=== PATIENT | male | born 1990 | race Caucasian/White ===

== ENCOUNTER 2021-07-01 20:51 | Observation (INO) | payer OTHER ==
[2021-07-01] MEDS ORDERED: SODIUM CHLORIDE 0.9% 1,000 ML IV STA ×2 (21:26→22:12)
[2021-07-01 21:45] LABS: Basophils # (A) 0.1 k/uL (0-0.2); Basophils % (A) 1 %; Eosinophils # (A) 0.4 k/uL (0-0.7); Eosinophils % (A) 2 %; HCT 46.6 % (39.0-53.0); HGB 15.1 gm/dL (13.0-17.5); Lymphocytes # (A) 2.7 k/uL (1.0-4.8); Lymphocytes % (A) 17 %; MCHC 32.3 g/dL (31.0-37.0); MCV 96.1 fL (80.0-100.0); Mean Platelet Volume 6.8; Monocytes # (A) 0.7 k/uL (0-1.0); Monocytes % (A) 4 %; Neutrophils # (A) 11.4 k/uL (1.3-7.7); Neutrophils % (A) 74 %; Platelet Count 353 k/uL (150-450); RBC 4.85 m/uL (4.30-5.90); WBC 15.5 k/uL (3.8-10.6)
[2021-07-01 21:53] LABS: Appearance,Urine Clear (Clear); Bilirubin,Urine Negative (Negative); Blood,Urine Negative (Negative); Color,Urine Light Yellow; Glucose,Urine (UA) Negative (Negative); Ketones,Urine Negative (Negative); Leukocyte Esterase,Urine Negative (Negative); Nitrite,Urine Negative (Negative); PH, Urine 7.5 (5.0-8.0); Protein,Urine Negative (Negative); Specific Gravity,Urine 1.015 (1.001-1.035); Urobilinogen,Urine <2.0 mg/dL (<2.0)
[2021-07-01 22:03] LABS: ALT 62 U/L (4-49); AST 49 U/L (17-59); African American GFR (CKD) >90 (>60 ml/min/1.73 sqM); Albumin 4.5 g/dL (3.5-5.0); Alkaline Phosphatase 78 U/L (38-126); Anion Gap 7 mmol/L; Blood Urea Nitrogen 23 mg/dL (9-20); Calcium 9.9 mg/dL (8.4-10.2); Carbon Dioxide 31 mmol/L (22-30); Chloride 101 mmol/L (98-107); Glucose 86 mg/dL (74-99); Lipase 79 U/L (23-300); Non-African American GFR(CKD) >90 (>60 ml/min/1.73 sqM); Potassium 5.3 mmol/L (3.5-5.1); Sodium 139 mmol/L (137-145); Total Bilirubin 0.4 mg/dL (0.2-1.3); Total Protein 7.6 g/dL (6.3-8.2)
--- NOTE | 2021-07-01 22:43 | CT ---
EXAMINATION TYPE: CT abdomen pelvis w con DATE OF EXAM: 07/01/2021 COMPARISON: None HISTORY: bdominal pain. Pt states hx stomach/colon removal due to sepsis CT DLP: 809 mGycm Automated exposure control for dose reduction was used. CONTRAST: Performed with IV Contrast, patient injected with 100 mL of Isovue 300. Images obtained from the diaphragm to the floor the pelvis with IV contrast. Lung bases are clear. There is no pleural effusion. Heart size is normal. There is no pericardial eff usion. Liver and spleen are intact. Liver is enlarged and measures 21 cm. There is no pancreatic mass . There is some deformity of the stomach. Gallbladder is contracted. The bile duct are not dilated. T here is no evidence of pancreatic mass. There is no adrenal mass. Kidneys show satisfactory contrast opacification. There is no hydronephrosi s. There is 2 mm calculi lower pole left kidney. The ureters are not dilated. There is no retroperito ileana adenopathy. There is small amount of fluid in the pelvis with low attenuation. Bladder distends smoothly. There is no inguinal hernia. There is no mesenteric edema. There is no ascites or free air. There is no bowel obstruction. Appendi x appears to be posterior and appears normal. Delayed images show normal renal excretion. Lumbar vertebrae have normal alignment. There is no compression fracture. The bony pelvis is intact. Hip joints appear normal. IMPRESSION: There is small amount of low-density fluid in the pelvis. Tiny amount of fluid adjacent to the right lobe of the liver. Mild hepatomegaly.
--- NOTE | 2021-07-01 23:37 | ED ---
Abdominal Pain HPI - General Source: patient, EMS Mode of arrival: EMS <Ubaldo Carrillo - Last Filed: 07/01/21 23:37> - General Source: patient, EMS, RN notes reviewed Mode of arrival: EMS <Nasreen Powers - Last Filed: 07/02/21 05:11> - General Chief Complaint: Abdominal Pain Stated Complaint: Abd Pain Time Seen by Provider: 07/01/21 21:17 - History of Present Illness Initial Comments: 30-year-old male presents to the emergency department via EMS for evaluation of right sided abdominal pain, onset today. Patient describes his pain is persistent discomfort. Denies any aggravating or alleviating factors. It is not accompanied by nausea, vomiting, or diarrhea. No change in appetite. Patient states he is concerned because he had a "ruptured ulcer" in March resulting in emergency surgery which occurred at [facility]. Patient does endorse a of history of IV drug abuse. Did not take anything to treat pain prior to arrival. (Nasreen Powers) - Related Data Allergies Allergy/AdvReac Type Severity Reaction Status Date / Time No Known Allergies Allergy Verified 07/01/21 21:05 Review of Systems ROS Other: All systems not noted in ROS Statement are negative. <GerardoUbaldo - Last Filed: 07/01/21 23:37> ROS Other: All systems not noted in ROS Statement are negative. <Linda Powersa - Last Filed: 07/02/21 05:11> ROS Statement: Those systems with pertinent positive or pertinent negative responses have been documented in the HPI. Past Medical History Past Medical History: Hypertension History of Any Multi-Drug Resistant Organisms: None Reported Additional Past Surgical History / Comment(s): abd surgey for ruptured ulcer (mar 2021) Past Psychological History: Anxiety, Depression Smoking Status: Current every day smoker Past Alcohol Use History: None Reported Past Drug Use History: Methamphetamine <GerardoUbaldo - Last Filed: 07/01/21 23:37> General Exam Limitations: no limitations (Well-developed, well-nourished male in no acute distress. Initial temperature 98.5, pulse 97, respirations 18, blood pressure 129/82, pulse ox 99% on room air.) General appearance: alert, in no apparent distress ENT exam: Present: normal exam, normal oropharynx, mucous membranes moist Respiratory exam: Present: normal lung sounds bilaterally. Absent: respiratory distress, wheezes, rales, rhonchi, stridor Cardiovascular Exam: Present: regular rate, normal rhythm, normal heart sounds. Absent: systolic murmur, diastolic murmur, rubs, gallop, clicks GI/Abdominal exam: Present: soft, tenderness (Nonlocalized tenderness upon palpation of the right side of abdomen), normal bowel sounds. Absent: distended, guarding, rebound, rigid Extremities exam: Present: normal inspection, full ROM, normal capillary refill. Absent: tenderness, pedal edema, joint swelling, calf tenderness Back exam: Present: normal inspection. Absent: CVA tenderness (R), CVA tenderness (L) Neurological exam: Present: alert, oriented X3, CN II-XII intact Psychiatric exam: Present: normal affect, normal mood <Nasreen Powers - Last Filed: 07/02/21 05:11> Course Vital Signs 07/01/21 07/01/21 07/02/21 20:52 23:07 02:17 Temperature 98.5 F Pulse Rate 97 89 84 Respiratory 18 18 16 Rate Blood Pressure 129/82 119/79 127/81 O2 Sat by Pulse 99 100 96 Oximetry 07/02/21 04:50 Temperature Pulse Rate 82 Respiratory 16 Rate Blood Pressure 128/78 O2 Sat by Pulse 98 Oximetry Procedures - Supply Protocol (Time Out) Nurse: Rickey Espinoza <Ubaldo Carrillo - Last Filed: 07/01/21 23:37> Medical Decision Making - Lab Data Result diagrams: 07/01/21 21:29 07/01/21 21:29 <Ubaldo Carrillo - Last Filed: 07/01/21 23:37> - Lab Data Result diagrams: 07/01/21 21:29 07/01/21 21:29 - Radiology Data Radiology results: report reviewed <Nasreen Powers - Last Filed: 07/02/21 05:11> - Medical Decision Making I saw this patient in conjunction with the nurse practitioner. I performed independent history and physical exam. Agree with case management. (Ubaldo Carrillo) This is a pleasant 30-year-old male who presents to the emergency department for evaluation of right-sided abdominal pain. Patient has a history of abdominal surgery last March related to a ruptured ulcer. Upon exam, patient appears moderately uncomfortable, but is able to rest calmly and explain his situation. He has not experienced any nausea, vomiting, or diarrhea at this time. Abdomen is soft, though tender along the right side. He was given IV fluids, Toradol, and Zofran with improvement. Laboratory studies were obtained showing leukocytosis and lactic acidosis. Additional fluids ordered for elevated lactic acid, though there is no overt concern for sepsis as patient is afebrile and not tachycardic. Blood cultures were collected and a dose of IV antibiotic was given. CT of the abdomen and pelvis does show small amount of fluid in the pelvis along with tiny amount of fluid adjacent to the right lobe of the liver. Given patient's history, physical exam findings, and workup, he will be admitted to the hospital for further evaluation and treatment. I did speak with Dr. Lyman who agrees to accept this patient. This patient's care was provided in collaboration with my attending Dr. Carrillo. ([facility]) - Lab Data Lab Results 07/01/21 07/01/21 07/01/21 Range/Units 21:29 21:29 21:29 WBC 15.5 H (3.8-10.6) k/uL RBC 4.85 (4.30-5.90) m/uL Hgb 15.1 (13.0-17.5) gm/dL Hct 46.6 (39.0-53.0) % MCV 96.1 (80.0-100.0) fL MCH 31.0 (25.0-35.0) pg MCHC 32.3 (31.0-37.0) g/dL RDW 14.0 (11.5-15.5) % Plt Count 353 (150-450) k/uL MPV 6.8 Neutrophils % 74 % Lymphocytes % 17 % Monocytes % 4 % Eosinophils % 2 % Basophils % 1 % Neutrophils # 11.4 H (1.3-7.7) k/uL Lymphocytes # 2.7 (1.0-4.8) k/uL Monocytes # 0.7 (0-1.0) k/uL Eosinophils # 0.4 (0-0.7) k/uL Basophils # 0.1 (0-0.2) k/uL Sodium 139 (137-145) mmol/L Potassium 5.3 H (3.5-5.1) mmol/L Chloride 101 (98-107) mmol/L Carbon Dioxide 31 H (22-30) mmol/L Anion Gap 7 mmol/L BUN 23 H (9-20) mg/dL Creatinine 0.86 (0.66-1.25) mg/dL Est GFR (CKD-EPI)AfAm >90 (>60 ml/min/1.73 sqM) Est GFR (CKD-EPI)NonAf >90 (>60 ml/min/1.73 sqM) Glucose 86 (74-99) mg/dL Lactic Ac Sepsis Rflx Plasma Lactic Acid Joe 2.5 H* (0.7-2.0) mmol/L Calcium 9.9 (8.4-10.2) mg/dL Total Bilirubin 0.4 (0.2-1.3) mg/dL AST 49 (17-59) U/L ALT 62 H (4-49) U/L Alkaline Phosphatase 78 (38-126) U/L Total Protein 7.6 (6.3-8.2) g/dL Albumin 4.5 (3.5-5.0) g/dL Lipase 79 (23-300) U/L Urine Color Urine Appearance (Clear) Urine pH (5.0-8.0) Ur Specific Pepin (1.001-1.035) Urine Protein (Negative) Urine Glucose (UA) (Negative) Urine Ketones (Negative) Urine Blood (Negative) Urine Nitrite (Negative) Urine Bilirubin (Negative) Urine Urobilinogen (<2.0) mg/dL Ur Leukocyte Esterase (Negative) 07/01/21 07/01/21 Range/Units 21:38 22:05 WBC (3.8-10.6) k/uL RBC (4.30-5.90) m/uL Hgb (13.0-17.5) gm/dL Hct (39.0-53.0) % MCV (80.0-100.0) fL MCH (25.0-35.0) pg MCHC (31.0-37.0) g/dL RDW (11.5-15.5) % Plt Count (150-450) k/uL MPV Neutrophils % % Lymphocytes % % Monocytes % % Eosinophils % % Basophils % % Neutrophils # (1.3-7.7) k/uL Lymphocytes # (1.0-4.8) k/uL Monocytes # (0-1.0) k/uL Eosinophils # (0-0.7) k/uL Basophils # (0-0.2) k/uL Sodium (137-145) mmol/L Potassium (3.5-5.1) mmol/L Chloride (98-107) mmol/L Carbon Dioxide (22-30) mmol/L Anion Gap mmol/L BUN (9-20) mg/dL Creatinine (0.66-1.25) mg/dL Est GFR (CKD-EPI)AfAm (>60 ml/min/1.73 sqM) Est GFR (CKD-EPI)NonAf (>60 ml/min/1.73 sqM) Glucose (74-99) mg/dL Lactic Ac Sepsis Rflx Y Plasma Lactic Acid Joe (0.7-2.0) mmol/L Calcium (8.4-10.2) mg/dL Total Bilirubin (0.2-1.3) mg/dL AST (17-59) U/L ALT (4-49) U/L Alkaline Phosphatase (38-126) U/L Total Protein (6.3-8.2) g/dL Albumin (3.5-5.0) g/dL Lipase (23-300) U/L Urine Color Light Yellow Urine Appearance Clear (Clear) Urine pH 7.5 (5.0-8.0) Ur Specific Pepin 1.015 (1.001-1.035) Urine Protein Negative (Negative) Urine Glucose (UA) Negative (Negative) Urine Ketones Negative (Negative) Urine Blood Negative (Negative) Urine Nitrite Negative (Negative) Urine Bilirubin Negative (Negative) Urine Urobilinogen <2.0 (<2.0) mg/dL Ur Leukocyte Esterase Negative (Negative) - Radiology Data CT of the abdomen and pelvis with contrast was obtained. Report was reviewed in its entirety. Impression per Dr. Rodriguez as there is small amount of blood density fluid in the pelvis. Tiny amount of fluid adjacent to the right lobe of the liver. mild hepatomegaly. (Nasreen Powers) Disposition <Ubaldo Carrillo - Last Filed: 07/01/21 23:37> Decision Date: 07/02/21 Decision Time: 01:15 <Nasreen Powers - Last Filed: 07/02/21 05:11> Clinical Impression: Abdominal pain, Leukocytosis, Lactic acidosis Disposition: ADMITTED IP TO THIS HOSP Condition: Serious
[2021-07-02] MEDS ORDERED: ONDANSETRON 4 MG/2 ML VIAL IVP PRN (01:10)
[2021-07-02] MEDS ORDERED: KETOROLAC 15 MG/ML 1 ML VIAL IVP PRN (01:10)
[2021-07-02] MEDS ORDERED: NALOXONE 0.4 MG/ML 1 ML VIAL IV PRN (01:10)
[2021-07-02] MEDS: SODIUM CHLORIDE 0.9% 1,000 ML IV SCH ×2 (02:16→08:04)
[2021-07-02 08:02] VITALS: BP 135/71; PULSE 75; RESP 18; TEMP 98.1
--- NOTE | 2021-07-02 12:43 | P.HPIM ---
History of Present Illness H&P Date: 07/02/21 This is a pleasant 30-year-old male who was recently at [facility] for past history of IV drug abuse and started having some intense right upper and lower quadrant abdominal pain that was not associated with nausea or vomiting and patient denied diarrhea. Patient states that the pain was intense and patient was not eating or drinking and feels he may have become dehydrated. On admission patient was found to be slightly acidotic with a plasma lactic acid of 2.5 and was started on IV hydration which has improved to 1.5 today. Patient also with a mild white blood count of 15.5 which is most likely reactive. Patient is afebrile patient denies any nausea or vomiting. Patient had CT abdomen and pelvis in the ER which showed a small amount of low- density fluid in the pelvis with the tiny amount of fluid adjacent to the right lobe of the liver and mild hepatomegaly with no other abnormal findings noted in the abdomen. Patient is tolerating diet and no further reports of abdominal pain noted on today's exam. Patient has a past medical history of hypertension although does not take any medications for this, patient admits to smoking tobacco daily approximately one pack per day although has recently cut down to half a pack per day, patient also admits to anxiety and depression. Review Of Systems: Constitutional: No fever, no chills, no night sweats. No weight change. No weakness, fatigue or lethargy. No daytime sleepiness. EENT: No headache. No blurred vision or double vision, no loss of vision. No loss of Hearing, no ringing in the ears, no dizziness. No nasal drainage or congestion. No epistaxis. No sore throat. Lungs: No shortness of breath, cough, no sputum production. No wheezing. Cardiovascular: No chest pain, no lower extremity edema. No palpitations. No paroxysmal nocturnal dyspnea. No orthopnea. No lightheadedness or dizziness. No syncopal episodes. Abdominal: Right upper and lower quadrant abdominal pain. No nausea, vomiting. No diarrhea. No constipation. No bloody or tarry stools.. No loss of appetite. Genitourinary: No dysuria, increased frequency, urgency. No urinary retention. Musculoskeletal: No myalgias. No muscle weakness, no gait dysfunction, no frequent falls. No back pain. No neck pain. Integumentary: No wounds, no lesions. No rash or pruritus. No unusual bruising. No change in hair or nails. Neurologic: No aphasia. No facial droop. No change in mentation. No head injury. No headache. No paralysis. No paresthesia. Psychiatric: No depression. No anxiety. No mood swings. Endocrine: No abnormal blood sugars. No weight change. No excessive sweating or thirst. No cold intolerance. PHYSICAL EXAMINATION: GENERAL: The patient is alert and oriented x4, Well developed, well nourished. HEENT: Pupils are round and equally reacting to light. EOMI. does have scleral icterus. No conjunctival pallor. Normocephalic, atraumatic. No pharyngeal erythema. No thyromegaly. CARDIOVASCULAR: S1 and S2 present, normal sinus rhythm PULMONARY: Breath sounds clear to auscultation with no wheezing or rhonchi noted. ABDOMEN: soft. Nontender on exam. non-distended, normoactive bowel sounds. No palpable organomegaly. No guarding or rigidity noted, no CVA tenderness noted on exam MUSCULOSKELETAL: No joint swelling or deformity. EXTREMITIES: No cyanosis, clubbing, or pedal edema. NEUROLOGICAL: Gross neurological examination did not reveal any focal deficits. SKIN: No rashes. Assessment: Abdominal pain, right upper quadrant and lower quadrant of unknown etiology most likely secondary to dehydration Lactic acidosis, present on admission most likely secondary to dehydration and poor oral intake Leukocytosis, most likely reactive GI prophylaxis DVT prophylaxis History of IV drug abuse and methamphetamine use, currently at [place] Full code Plan: Recommend to continue with hydration and repeat labs recommended although patient refused. Patient's lactic acidosis has improved and normalized after IV hydration. Patient states he is feeling much improved and denies any abdominal pain, nausea or vomiting. Patient had a normal bowel movement today and is passing gas. Patient tolerating diet. Patient was at [facility] for rehab and almost finished and will be going to [facility] and [place] after [facility] which is are been arranged. Patient reports to having one day left at [facility] and would like to get back there. Patient will be discharged to [facility] and is calling the facility to arrange for picking him up. Patient reports to having no primary care provider although will establish with one [facility] once he gets to the recovery house. Encourage the patient to continue to attempt to quit smoking and also to avoid any drug use or alcohol. Patient verbalized understanding. Patient is tolerating diet with no further abdominal pain patient will be discharged to [facility] today. The impression and plan of care has been dictated by Ana Luisa Moe, nurse practitioner as directed. Dr. Med MD I have performed a history and examination and MDM of this patient, discussed the same with the dictator, and agree with the dictator's assessment and plan as written ,documented as a scribe. Based on total visit time, I have performed more than 50% of the visit. Any additional findings or plans will be noted. Review of Systems Constitutional: Denies chills, Denies fever Ears, nose, mouth and throat: Denies headache, Denies sore throat Cardiovascular: Denies chest pain, Denies shortness of breath Respiratory: Denies cough Gastrointestinal: Reports abdominal pain Musculoskeletal: Denies myalgias Integumentary: Denies pruritus, Denies rash Neurological: Denies numbness, Denies weakness Psychiatric: Denies anxiety, Denies depression Endocrine: Denies fatigue, Denies weight change Past Medical History Past Medical History: Hypertension History of Any Multi-Drug Resistant Organisms: None Reported Additional Past Surgical History / Comment(s): abd surgey for ruptured ulcer (mar 2021) Past Psychological History: Anxiety, Depression Smoking Status: Current every day smoker Past Alcohol Use History: None Reported Past Drug Use History: Methamphetamine Medications and Allergies Home Medications Medication Instructions Recorded Confirmed Type Acetaminophen [Tylenol] 650 mg PO Q4H PRN MDD 3 doses 07/02/21 07/02/21 History Benzocaine 20 % Gel [Orajel] 1 applic MM DIRECTED 07/02/21 07/02/21 History Calcium Carb/Mag Ox/Zinc Sulf 1 tab PO TID PRN 07/02/21 07/02/21 History [Ymv-Uwq-Rlnc 334-134-5 mg Tab] Chlorpheniramine Maleate 4 mg PO Q4H PRN 07/02/21 07/02/21 History [Chlor-Trimeton] Ibuprofen [Motrin Ib] 600 mg PO Q6H PRN 07/02/21 07/02/21 History Mirtazapine [Remeron] 15 - 30 mg PO HS PRN 07/02/21 07/02/21 History cloNIDine HCL [Catapres] 0.1 - 0.3 mg PO Q4H PRN 07/02/21 07/02/21 History guaiFENesin [Mucinex Fast-Max 200 mg PO Q4H PRN 07/02/21 07/02/21 History Chest-Congest] traZODone HCL 50 - 150 mg PO HS PRN 07/02/21 07/02/21 History Allergies Allergy/AdvReac Type Severity Reaction Status Date / Time No Known Allergies Allergy Verified 07/02/21 11:56 Physical Exam Vitals: Vital Signs Temp Pulse Pulse Resp BP BP Pulse Ox 07/02/21 08:00 98.1 F 75 18 135/71 99 07/02/21 04:50 82 16 128/78 98 07/02/21 02:17 84 16 127/81 96 07/01/21 23:07 89 18 119/79 100 07/01/21 20:52 98.5 F 97 18 129/82 99 Intake and Output 07/01/21 07/02/21 07/02/21 22:59 06:59 14:59 Intake Total 240 Balance 240 Intake: Oral 240 Other: # Voids 2 Weight 74.843 kg Results CBC & Chem 7: 07/01/21 21:29 07/01/21 21:29 Labs: Abnormal Lab Results - Last 24 Hours (Table) 07/01/21 07/01/21 07/01/21 Range/Units 21:29 21:29 21:29 WBC 15.5 H (3.8-10.6) k/uL Neutrophils # 11.4 H (1.3-7.7) k/uL Potassium 5.3 H (3.5-5.1) mmol/L Carbon Dioxide 31 H (22-30) mmol/L BUN 23 H (9-20) mg/dL Plasma Lactic Acid Joe 2.5 H* (0.7-2.0) mmol/L ALT 62 H (4-49) U/L Assessment and Plan Time with Patient: Greater than 30
--- NOTE | 2021-07-03 00:15 | P.DS ---
Providers Date of admission: 07/01/21 23:36 Expected date of discharge: 07/02/21 Attending physician: Mariaa Lyman Primary care physician: Stated None Hospital Course: Final diagnosis Abdominal pain, right upper quadrant and lower quadrant of unknown etiology most likely secondary to dehydration, resolved Lactic acidosis, present on admission most likely secondary to dehydration and poor oral intake Leukocytosis, most likely reactive GI prophylaxis DVT prophylaxis History of IV drug abuse and methamphetamine use, currently at [facility] Full code Discharge disposition Patient is being discharged in a stable condition with guarded prognosis to [facility]. Patient will follow-up with pcp upon discharge. Total time taken is greater than 35 minutes. Hospital course This is an 30-year-old male who was recently admitted with severe abdominal pain and RUQ pain and was being closely monitored. Patient was also found to have elevated lactic acid and was hydrated. Patient is feeling much improved and would like to be discharged back to [facility] to complete his rehab. Patient has also made arrangements for staying at [facility] in [place] on discharge from [facility]. Currently no reports of chest pain, shortness of breath, or palpitations. Patient is afebrile. No reports of nausea or vomiting and patient is tolerating diet. Patient will be discharged to [facility] today. PHYSICAL EXAMINATION: GENERAL: The patient is alert and oriented x4, Well developed, well nourished. HEENT: Pupils are round and equally reacting to light. EOMI. does have scleral icterus. No conjunctival pallor. Normocephalic, atraumatic. No pharyngeal erythema. No thyromegaly. CARDIOVASCULAR: S1 and S2 present, normal sinus rhythm PULMONARY: Breath sounds clear to auscultation with no wheezing or rhonchi noted. ABDOMEN: soft. Nontender on exam. non-distended, normoactive bowel sounds. No palpable organomegaly. No guarding or rigidity noted, no CVA tenderness noted on exam MUSCULOSKELETAL: No joint swelling or deformity. EXTREMITIES: No cyanosis, clubbing, or pedal edema. NEUROLOGICAL: Gross neurological examination did not reveal any focal deficits. SKIN: No rashes. Please refer to medication reconciliation sheet for a list of medications. The impression and plan of care has been dictated by Ana Luisa Moe, nurse practitioner as directed. Dr. Med MD I have performed a history and examination and MDM of this patient, discussed the same with the dictator, and agree with the dictator's assessment and plan as written ,documented as a scribe. Based on total visit time, I have performed more than 50% of the visit. Any additional findings or plans will be noted. Patient Condition at Discharge: Stable Plan - Discharge Summary New Discharge Prescriptions: No Action traZODone HCL 50 - 150 mg PO HS PRN PRN Reason: Insomnia Ibuprofen [Motrin Ib] 600 mg PO Q6H PRN PRN Reason: Pain Or Fever > 100.5 Benzocaine 20 % Gel [Orajel] 1 applic MM DIRECTED guaiFENesin [Mucinex Fast-Max Chest-Congest] 200 mg PO Q4H PRN PRN Reason: Congestion Chlorpheniramine Maleate [Chlor-Trimeton] 4 mg PO Q4H PRN PRN Reason: Allergy Symptoms Calcium Carb/Mag Ox/Zinc Sulf [Veg-Nyd-Cnef 334-134-5 mg Tab] 1 tab PO TID PRN PRN Reason: cramps Acetaminophen [Tylenol] 650 mg PO Q4H PRN MDD 3 doses PRN Reason: Pain Or Fever > 100.5 Mirtazapine [Remeron] 15 - 30 mg PO HS PRN PRN Reason: restless legs cloNIDine HCL [Catapres] 0.1 - 0.3 mg PO Q4H PRN PRN Reason: BP > 160/100 Discharge Medication List Acetaminophen [Tylenol] 650 mg PO Q4H PRN MDD 3 doses 07/02/21 [History] Benzocaine 20 % Gel [Orajel] 1 applic MM DIRECTED 07/02/21 [History] Calcium Carb/Mag Ox/Zinc Sulf [Mgb-Wnp-Icgp 334-134-5 mg Tab] 1 tab PO TID PRN 07/02/21 [History] Chlorpheniramine Maleate [Chlor-Trimeton] 4 mg PO Q4H PRN 07/02/21 [History] Ibuprofen [Motrin Ib] 600 mg PO Q6H PRN 07/02/21 [History] Mirtazapine [Remeron] 15 - 30 mg PO HS PRN 07/02/21 [History] cloNIDine HCL [Catapres] 0.1 - 0.3 mg PO Q4H PRN 07/02/21 [History] guaiFENesin [Mucinex Fast-Max Chest-Congest] 200 mg PO Q4H PRN 07/02/21 [History] traZODone HCL 50 - 150 mg PO HS PRN 07/02/21 [History] Follow up Appointment(s)/Referral(s): Nereida Reno MD [STAFF PHYSICIAN] - 1 Week Patient Instructions/Handouts: Acute Abdominal Pain (DC) Discharge Disposition: HOME SELF-CARE
== END 2021-07-02 13:36 | disposition home or self-care (01) ==
LOC: EC 20:51 → 4SSUR 23:36
PROVIDERS: ADMIT Hospitalist; ATTEND Hospitalist
DX: R10.31 Right lower quadrant pain (principal); E87.2 Acidosis; D72.829 Elevated white blood cell count, unspecified; R10.11 Right upper quadrant pain; I10 Essential (primary) hypertension; R16.0 Hepatomegaly, not elsewhere classified; F15.10 Other stimulant abuse, uncomplicated; F32.A Depression, unspecified; F41.9 Anxiety disorder, unspecified; F17.210 Nicotine dependence, cigarettes, uncomplicated; R63.8 Other symptoms and signs concerning food and fluid intake; Z20.822 Contact with and (suspected) exposure to COVID-19; Z86.19 Personal history of other infectious and parasitic diseases; Z87.19 Personal history of other diseases of the digestive system; Z91.19 Patient's noncompliance with other medical treatment and regimen; Z71.6 Tobacco abuse counseling
CPT/HCPCS: 96361 ×2; 96365; 99285; 36415 ×2; 80053; 83605 ×2; 83690; 85025; 81003; 87040; 87635; 74177; G0378; J0696; Q9967

== ENCOUNTER 2021-10-18 09:59 | Emergency (ER) | payer OTHER ==
[2021-10-18 10:05] VITALS: BP 125/76; PULSE 88; RESP 18; TEMP 98.2
[2021-10-18 10:38] LABS: Basophils # (A) 0.1 k/uL (0-0.2); Basophils % (A) 1 %; Eosinophils # (A) 0.4 k/uL (0-0.7); Eosinophils % (A) 4 %; HCT 46.6 % (39.0-53.0); HGB 15.8 gm/dL (13.0-17.5); Lymphocytes # (A) 2.6 k/uL (1.0-4.8); Lymphocytes % (A) 27 %; MCH 31.5 pg (25.0-35.0); MCHC 33.9 g/dL (31.0-37.0); MCV 93.1 fL (80.0-100.0); Mean Platelet Volume 6.8; Monocytes # (A) 0.7 k/uL (0-1.0); Monocytes % (A) 7 %; Neutrophils # (A) 5.2 k/uL (1.3-7.7); Neutrophils % (A) 56 %; Platelet Count 387 k/uL (150-450); RBC 5.01 m/uL (4.30-5.90); RDW 14.1 % (11.5-15.5); WBC 9.3 k/uL (3.8-10.6)
--- NOTE | 2021-10-18 10:42 | ED ---
General Adult HPI - General Chief complaint: Abdominal Pain Stated complaint: Abd pain Time Seen by Provider: 10/18/21 10:03 Source: patient, EMS Mode of arrival: EMS Limitations: no limitations - History of Present Illness Initial comments: Dictation was produced using [employer] dictation software. please excuse any grammatical, word or spelling errors. Chief Complaint: 31 y Old male presents emergency Department with episode of right lower quadrant pain History of Present Illness: Patient is a 31-year-old male presents for episode of right lower quadrant abdominal pain. Patient states that he woke up this morning to go smoke a cigarette when he started to feel episode of cramping in his right lower quadrant. Patient denies any history of appendectomy. He does have history of abdominal surgery for ruptured ulcer. Patient states that en route to the emergency department his symptoms completely resolved. No fever. No nausea vomiting. The ROS documented in this emergency department record has been reviewed and confirmed by me. Those systems with pertinent positive or negative responses have been documented in the HPI. All other systems are other negative and/or noncontributory. PHYSICAL EXAM: General Impression: Alert and oriented x3, not in acute distress HEENT: Normocephalic atraumatic, extra-ocular movements intact, pupils equal and reactive to light bilaterally, mucous membranes moist. Cardiovascular: Heart regular rate and rhythm Chest: Able to complete full sentences, no retractions, no tachypnea Abdomen: abdomen soft, non-tender, non-distended, no organomegaly Musculoskeletal: Pulses present and equal in all extremities, no peripheral edema Motor: no focal deficits noted Neurological: CN II-XII grossly intact, no focal motor or sensory deficits noted Skin: Intact with no visualized rashes Psych: Normal affect and mood ED course: 31 y Old male brought in from [facility] by EMS for episode of right lower quadrant pain. Vital Signs upon arrival are within acceptable limits. Physical examination is benign. Patient denies any abdominal symptoms at the bedside. Laboratory evaluation obtained. CBC, metabolic panel is unremarkable. Patient observed in emergency department for approximately 45 minutes is reevaluated at bedside 1045 continues to be symptomatically. Patient discharged. Patient has no high-risk features. Advised follow up with primary care doctor. - Related Data Home Medications Medication Instructions Recorded Confirmed Acetaminophen [Tylenol] 650 mg PO Q4H PRN MDD 3 doses 07/02/21 07/02/21 Benzocaine 20 % Gel [Orajel] 1 applic MM DIRECTED 07/02/21 07/02/21 Calcium Carb/Mag Ox/Zinc Sulf 1 tab PO TID PRN 07/02/21 07/02/21 [Zzg-Mmm-Yraa 334-134-5 mg Tab] Chlorpheniramine Maleate 4 mg PO Q4H PRN 07/02/21 07/02/21 [Chlor-Trimeton] Ibuprofen [Motrin Ib] 600 mg PO Q6H PRN 07/02/21 07/02/21 Mirtazapine [Remeron] 15 - 30 mg PO HS PRN 07/02/21 07/02/21 cloNIDine HCL [Catapres] 0.1 - 0.3 mg PO Q4H PRN 07/02/21 07/02/21 guaiFENesin [Mucinex Fast-Max 200 mg PO Q4H PRN 07/02/21 07/02/21 Chest-Congest] traZODone HCL 50 - 150 mg PO HS PRN 07/02/21 07/02/21 Allergies Allergy/AdvReac Type Severity Reaction Status Date / Time No Known Allergies Allergy Verified 10/18/21 10:05 Review of Systems ROS Statement: Those systems with pertinent positive or pertinent negative responses have been documented in the HPI. ROS Other: All systems not noted in ROS Statement are negative. Past Medical History Past Medical History: Hypertension History of Any Multi-Drug Resistant Organisms: None Reported Additional Past Surgical History / Comment(s): abd surgey for ruptured ulcer (mar 2021) Past Psychological History: Anxiety, Depression Smoking Status: Current every day smoker Past Alcohol Use History: Occasional Past Drug Use History: Methamphetamine, Prescription Drug Abuse General Exam Limitations: no limitations Course Vital Signs 10/18/21 10:03 Temperature 98.2 F Pulse Rate 88 Respiratory 18 Rate Blood Pressure 125/76 O2 Sat by Pulse 97 Oximetry Medical Decision Making - Lab Data Result diagrams: 10/18/21 10:13 10/18/21 10:13 Lab Results 10/18/21 10/18/21 Range/Units 10:13 10:13 WBC 9.3 (3.8-10.6) k/uL RBC 5.01 (4.30-5.90) m/uL Hgb 15.8 (13.0-17.5) gm/dL Hct 46.6 (39.0-53.0) % MCV 93.1 (80.0-100.0) fL MCH 31.5 (25.0-35.0) pg MCHC 33.9 (31.0-37.0) g/dL RDW 14.1 (11.5-15.5) % Plt Count 387 (150-450) k/uL MPV 6.8 Neutrophils % 56 % Lymphocytes % 27 % Monocytes % 7 % Eosinophils % 4 % Basophils % 1 % Neutrophils # 5.2 (1.3-7.7) k/uL Lymphocytes # 2.6 (1.0-4.8) k/uL Monocytes # 0.7 (0-1.0) k/uL Eosinophils # 0.4 (0-0.7) k/uL Basophils # 0.1 (0-0.2) k/uL Sodium 139 (137-145) mmol/L Potassium 4.5 (3.5-5.1) mmol/L Chloride 104 (98-107) mmol/L Carbon Dioxide 29 (22-30) mmol/L Anion Gap 6 mmol/L BUN 21 H (9-20) mg/dL Creatinine 0.75 (0.66-1.25) mg/dL Est GFR (CKD-EPI)AfAm >90 (>60 ml/min/1.73 sqM) Est GFR (CKD-EPI)NonAf >90 (>60 ml/min/1.73 sqM) Glucose 98 (74-99) mg/dL Calcium 9.4 (8.4-10.2) mg/dL Total Bilirubin 0.3 (0.2-1.3) mg/dL AST 42 (17-59) U/L ALT 68 H (4-49) U/L Alkaline Phosphatase 84 (38-126) U/L Total Protein 7.4 (6.3-8.2) g/dL Albumin 4.4 (3.5-5.0) g/dL Lipase 141 (23-300) U/L Disposition Clinical Impression: Abdominal pain Disposition: HOME SELF-CARE Condition: Good Instructions (If sedation given, give patient instructions): Abdominal Pain (ED) Is patient prescribed a controlled substance at d/c from ED?: No Referrals: None,Stated [Primary Care Provider] - 1-2 days Time of Disposition: 10:47
[2021-10-18 10:46] LABS: ALT 68 U/L (4-49); AST 42 U/L (17-59); African American GFR (CKD) >90 (>60 ml/min/1.73 sqM); Albumin 4.4 g/dL (3.5-5.0); Alkaline Phosphatase 84 U/L (38-126); Anion Gap 6 mmol/L; Blood Urea Nitrogen 21 mg/dL (9-20); Calcium 9.4 mg/dL (8.4-10.2); Carbon Dioxide 29 mmol/L (22-30); Chloride 104 mmol/L (98-107); Glucose 98 mg/dL (74-99); Lipase 141 U/L (23-300); Non-African American GFR(CKD) >90 (>60 ml/min/1.73 sqM); Potassium 4.5 mmol/L (3.5-5.1); Sodium 139 mmol/L (137-145); Total Bilirubin 0.3 mg/dL (0.2-1.3); Total Protein 7.4 g/dL (6.3-8.2)
== END 2021-10-18 10:55 | disposition home or self-care (01) ==
LOC: EC 09:59
DX: R10.31 Right lower quadrant pain (principal); F17.200 Nicotine dependence, unspecified, uncomplicated; I10 Essential (primary) hypertension; Z79.899 Other long term (current) drug therapy
CPT/HCPCS: 36415; 80053; 83690; 85025; 99284